=== PATIENT | male | born 1970 | race Caucasian/White ===

== ENCOUNTER → 2019-03-27 | Day surgery (SDC) | payer BC ==
[~2019-03-27] MED LIST: DORYX MPC120 MG PO; HUMIRA10 MG/0.1 SUBQ; OXYCODONE HCL 55 MG PO; XARELTO10 MG PO
--- NOTE | 2019-03-31 15:06 | PATH ---
[address] [address] PATHOLOGY RPT PROCEDURE Name: SHADI MCKEON Room: [facility].#: [id number] Admission: 03/27/19 Date of : 68 Discharge: Report #: [id number] Path Case #: [id number] [facility] Accession Number: [id number] . 01 Material submitted: . body - LEFT HIDRADENITIS. Modifiers: left . 01 Clinical history: . Hidradenitis suppurativa . 02 Diagnosis: Left hidradenitis: - Benign skin with features typical of hidradenitis suppurativa including epithelial inclusion cyst(s) with acute and chronic inflammation and abscess formation. (BREE/db; 03/31/2019) LBQ 03/31/2019 1319 Local . 02 Electronically signed: . Greg Lyles MD, Pathologist NPI- [id number] . 01 Gross description: . The specimen is received in formalin, labeled "Shadi Mckeon, left hidradenitis". Received is an excision of pale tierney to llanos-tierney skin with attached underlying fibroadipose tissue measuring 11.1 x 3.3 x 1.2 cm in greatest dimensions. The specimen is submitted representatively in cassettes A1 and A2. (CAA; 03/30/2019) QA/[facility] 03/30/2019 1551 Local . 02 Pathologist provided ICD-10: L73.2, L72.0, L98.9, L02.91 . 02 CPT . 096767 Specimen Comment: A courtesy copy of this report has been sent to [phone] Specimen Comment: Report sent to Performed at: 01 [facility] [address], [place], [place] [id number] MD Salomon De Souza MD Phone: [phone] Performed at: [address] [address] [address], [place], [place] [id number] MD Greg Lyles MD Phone: [phone]
--- NOTE | 2019-04-04 12:49 | OP ---
[address] [address] OPERATIVE REPORT Name: PIERRE MCKEON Room: [facility]#: [id number] Admission: 03/27/19 Attend Phys: Sharon Jones Discharge: Date of : 68 Report #: [id number] THIS REPORT FOR: //name// CC: FAM unknown Samir Izquierdo DATE OF SERVICE: 03/27/2019 SURGEON: Samir Sullivan DO SANDWICH MAKER: Ivan Traylor DO PREOPERATIVE DIAGNOSIS: Left axillary hidradenitis. POSTOPERATIVE DIAGNOSIS: Left axillary hidradenitis. INDICATIONS: The patient presented as an outpatient to our clinic with complaints of chronic remitting left axillary infection and a diagnosis of hidradenitis. History of present illness and physical exam were consistent with left axillary hidradenitis. This has been present for several years. He tried topicals and suppressive antibiotic therapy without relief. The patient elected to proceed with an operation after all risks and benefits were explained. The risks of bleeding, infection, hematoma, seroma, damage to nearby structures, including muscles and nerves, and contracture were explained in detail. OPERATIVE DESCRIPTION: The patient was taken to the operating theater and placed in the supine position with his left arm extended to 90 degrees. General anesthesia was induced without complication. Bilateral SCDs were placed and preoperative antibiotics were given. The left axillary region was prepped and draped in standard sterile fashion. The area of axillary hidradenitis was approximately 15 cm caudad to cephalad and 7 cm medial to lateral in the axillary fold. There is no active infection present. The site was first marked with a surgical marker while the arm was elevated above his head to ensure with closure that he would not have restriction in motion. A 15 blade scalpel was then used to make a 15 cm incision x 5 cm incision in a juan josé pattern to include the majority of the hidradenitis. There was a small area medially on his chest wall that was not included in this incision as we feared this will to be too much tissue to take and he may have limited arm motion with closure. Once the incision was made, electrocautery was used for hemostasis. The epidermis and dermis were dissected off the subcutaneous fat using bovie electrocautery. The specimen was removed without complication and sent for pathology. There were several areas that required electrocautery for hemostasis. The wound was irrigated [place] [address] OPERATIVE REPORT Name: PIERRE MCKEON Room: [facility]#: [id number] Admission: 03/27/19 Attend Phys: Sharon Jones Discharge: Date of : 68 Report #: [id number] Once hemostasis was achieved, we closed the wound using nylon sutures in a vertical mattress fashion. These were 3-0 nylon sutures. Before the last several sutures were placed, a MACEY drain was placed into the wound exiting the medial chest wall in the subcutaneous plane. The remainder of the 3-0 nylon vertical mattress sutures were then placed. The drain was placed on bulb suction. The area was cleaned again using saline and dressed with Kerlix fluffs and multiple abdominal pads with tape. The drain was sewn into place using a 2-0 nylon. This concluded the procedure. All sponge, needle and instrument counts were correct x 2. ESTIMATED BLOOD LOSS: 50 mL. COMPLICATIONS: None. SPECIMEN: Left axillary hidradenitis 15 x 7 cm epidermis and dermis. DRAIN: Flat MACEY drain. DISPOSITION: The patient was extubated in the operating theater and taken to PACU in stable condition. <ELECTRONICALLY SIGNED> By: Samir Izquierdo DO 04/04/19 1249 [id number] Izquierdo DO /nt
== END | disposition home or self-care (01) ==
LOC: M.SUR 08:55
DX: L73.2 Hidradenitis suppurativa (principal); L72.0 Epidermal cyst; L98.9 Disorder of the skin and subcutaneous tissue, unspecified; L02.91 Cutaneous abscess, unspecified; Z79.899 Other long term (current) drug therapy; Z98.890 Other specified postprocedural states; Z88.8 Allergy status to other drugs, medicaments and biological substances; Z79.01 Long term (current) use of anticoagulants